=== PATIENT | female | born 1995 | race Caucasian/White ===

== ENCOUNTER 2018-06-11 22:58 | Observation (INO) ==
[2018-06-11 23:47] LABS: Bilirubin,Urine Negative (Negative); Blood,Urine Trace (Negative); Clarity,Urine Cloudy (Clear); Color,Urine Dark Yellow (Yellow); Glucose,Urine (UA) Normal (Normal); Ketones,Urine Negative (Negative); Leukocyte Esterase,Urine Large (Negative); Nitrite,Urine Positive (Negative); Protein,Urine Trace mg/dL (Neg-Trace); Urobilinogen,Urine Normal (Normal)
[2018-06-11 23:50] LABS: Bacteria,Urine Few per hpf (None-Few); Hyaline Casts,Urine None Seen per lpf (None-Few); Squamous Epithelial Cell,Urine Many per lpf (None-Few); WBC,Urine TNTC per hpf (0-3)
[2018-06-11 23:59] LABS: Amphetamine Screen,Urine Negative ng/mL (Cutoff=1000); Barbiturate Screen,Urine Negative ng/mL (Cutoff=200); Benzodiazepines Screen,Urine Negative ng/mL (Cutoff=200); Cannabinoid Screen,Urine Positive ng/mL (Cutoff = 50); Cocaine Screen,Urine Negative ng/mL (Cutoff= 300); Opiate Screen,Urine Negative ng/mL (Cutoff=300); Phencyclidine Screen,Urine Negative ng/mL (Cutoff=25)
[2018-06-12 00:17] LABS: Basophils % 0.3 %; Eosinophils # 0.3 K/mcL (0.0-0.6); Hematocrit 41.8 % (35.3-44.9); Hemoglobin 14.6 g/dL (11.5-15.4); Immature Granulocytes % 0.5 % (0-4); Lymphocytes # 2.9 K/mcL (0.6-4.6); Mean Corpuscular HGB Conc 34.9 g/dL (31.6-35.5); Mean Corpuscular Hemoglobin 31.6 pg (28.0-33.3); Mean Corpuscular Volume 90.5 fL (83.0-100.0); Mean Platelet Volume 11.1 fL (9.4-12.4); Monocytes # 0.7 K/mcL (0.0-1.3); Monocytes % 5.3 %; Neutrophils # 8.6 K/mcL (1.6-8.9); Platelet Count 255 K/mcL (140-400); Red Blood Count 4.62 M/mcL (3.82-4.97); Red Cell Distribution Width 12.2 % (11.5-14.5); Segmented Neutrophils % 68.9 %
[2018-06-12 00:22] LABS: Acetaminophen < 10 mcg/mL (10-20); BUN/Creatinine Ratio 14 (6-26); Blood Urea Nitrogen 10 mg/dL (6-20); Calcium 10.1 mg/dL (8.6-10.3); Carbon Dioxide 23 mEq/L (23-29); Chloride 106 mEq/L (98-107); Ethanol < 10 mg/dL (Less than 10); Glucose 109 mg/dL (70-105); Osmolality,Calculated 288 (280-300); Potassium 3.8 mEq/L (3.5-5.1); Salicylate < 2.5 mg/dL (15.0-30.0); Sodium 139 mEq/L (136-145); eGFR For Non-African Americans > 60 (> 60)
[2018-06-12] MEDS ORDERED: Acetaminophen 325 MG TABLET PO ONE (01:01)
[2018-06-12] MEDS ORDERED: Nitrofurantoin (BID) 100 MG CAPSULE PO ONE (01:03)
--- NOTE | 2018-06-12 01:26 | Emergency Department Note ---
Disposition Clinical Impression: Suicidal ideation UTI (urinary tract infection) Qualifiers: Urinary tract infection type: site unspecified Hematuria presence: with hematuria Qualified Code(s): N39.0 - Urinary tract infection, site not specified Disposition: Admitted As Inpatient Condition: Good Referrals: NONE,PCP [Primary Care Provider] - Forms: ED Satisfaction Letter Time of Disposition: 05:46 Psych HPI - General Chief Complaint: ED Psychiatric Symptoms Stated Complaint: SI/Depression Time Seen by Provider: 06/11/18 23:44 Source: patient Mode of arrival: private vehicle Limitations: no limitations Nursing Notes Reviewed: Yes Vital Signs Reviewed: Yes - History of Present Illness HPI Narrative: 22-year-old female prior history of depression and suicide attempt presents due to suicidal ideation. Reports stressors in her life. She is on Effexor and is compliant with her medications however she states she continues to have thoughts. No plan. She previously tried to cut herself in the past. Denies any alcohol or drug ingestion. No auditory or visual hallucinations. No homicidal ideation. No other complaints. Pt complaint: suicidal ideation Onset (ago): day(s) History of similar episodes: Yes Improves with: none Worsens with: none Alleged intoxication: No Associated Psychiatric Symptoms: depression, suicidal ideation Associated symptoms: Reports: other (Dysuria) Traumatic symptoms: denies traumatic injury Treatments prior to arrival: none Self harm or harm to others: admits thoughts of self harm, denies having a plan - Related Data Allergies Allergy/AdvReac Type Severity Reaction Status Date / Time Sulfa (Sulfonamide Allergy Rash Verified 06/11/18 23:20 Antibiotics) codeine AdvReac Vomiting Verified 06/11/18 23:20 All systems ED: reviewed and negative except as stated. Gastrointestinal: Denies: abdominal pain Genitourinary: Reports: dysuria Neurological: Reports: headache Psychiatric: Reports: depression, suicidal thoughts. Denies: homicidal thoughts , auditory hallucinations, visual hallucinations Past Medical History - Past Medical History Attestation: Yes The following information was validated with the patient. Source: patient Medical history: Reports: no medical history Psychiatric history: Reports: depression - Social History Smoking Status: Current every day smoker Alcohol use: Reports: none Drug use: Reports: none Physical Exam - General Limitations: no limitations General appearance: alert, in no apparent distress - Head Head exam: atraumatic, normocephalic - Eye Eye exam: Present: normal appearance - ENT ENT exam: normal exam - Neck Neck exam: Present: normal inspection, full ROM - Chest Chest inspection: Present: normal inspection, symmetric chest wall rise - Respiratory Respiratory exam: Present: normal lung sounds bilaterally - Cardiovascular Cardiovascular exam: Present: regular rate, normal rhythm, normal heart sounds - Abdominal Exam Abdominal exam: Present: soft, Non-Tender. Absent: tenderness, distention, rigidity - Extremities Exam Extremities exam: Present: normal inspection, full ROM - Expanded Upper Extremity Exam Shoulder exam: Present: normal inspection, full ROM Arm exam: Present: normal inspection, full ROM Elbow exam: Present: normal inspection, full ROM Forearm/Wrist exam: Present: normal inspection, full ROM Hand exam: Present: normal inspection, full ROM - Expanded Lower Extremity Exam Hip/Pelvis exam: Present: normal inspection, full ROM Upper leg exam: Present: normal inspection, full ROM Knee exam: Present: normal inspection, full ROM Lower leg exam: Present: normal inspection, full ROM Ankle exam: Present: normal inspection, full ROM Foot/toe exam: Present: normal inspection, full ROM - Skin Skin exam: Present: warm, dry Course Course Narrative: Patient seen and examined. He slipped for psychiatric evaluation. Medically cleared. Noted to have a UTI on her urinalysis. Macrobid ordered. Tylenol for headache. Vital Signs Temperature 99 F 06/11/18 23:16 Pulse Rate 99 06/11/18 23:16 Respiratory Rate 20 06/11/18 23:16 Blood Pressure 137/88 06/11/18 23:16 O2 Sat by Pulse Oximetry 100 06/11/18 23:16 Temperature 98 F 06/12/18 04:38 Pulse Rate 89 06/12/18 04:38 Respiratory Rate 16 06/12/18 04:38 Blood Pressure 121/77 06/12/18 04:38 O2 Sat by Pulse Oximetry 98 06/12/18 04:38 Oxygen Delivery Oxygen Delivery Room Air Psych - MDM Narrative Medical decision making narrative: 20-year-old female presents with suicidal ideation. Medically cleared for psychiatric evaluation. Workup demonstrated a UTI. Patient is admitted to the psychiatric service. - Lab Data Lab results reviewed: Yes I reviewed the patient's lab results. Result diagrams: 06/11/18 23:46 06/11/18 23:46 Lab Results 08/02/18 08/02/18 08/02/18 Range/Units 23:10 23:10 23:10 WBC (4.3-11.1) K/mcL RBC (3.82-4.97) M/mcL Hgb (11.5-15.4) g/dL Hct (35.3-44.9) % MCV (83.0-100.0) fL MCH (28.0-33.3) pg MCHC (31.6-35.5) g/dL RDW (11.5-14.5) % Plt Count (140-400) K/mcL MPV (9.4-12.4) fL Immature Gran % (0-4) % Seg Neutrophils % % Lymphocytes % % Monocytes % % Eosinophils % % Basophils % % Neutrophils # (1.6-8.9) K/mcL Lymphocytes # (0.6-4.6) K/mcL Monocytes # (0.0-1.3) K/mcL Eosinophils # (0.0-0.6) K/mcL Basophils # (0.0-0.2) K/mcL Sodium (136-145) mEq/L Potassium (3.5-5.1) mEq/L Chloride (98-107) mEq/L Carbon Dioxide (23-29) mEq/L BUN (6-20) mg/dL Creatinine (0.60-1.20) mg/dL Est GFR ( Amer) (> 60) Est GFR (Non-Af Amer) (> 60) BUN/Creatinine Ratio (6-26) Glucose (70-105) mg/dL Calculated Osmolality (280-300) Calcium (8.6-10.3) mg/dL Urine Color Dark Yellow (Yellow) Urine Clarity Cloudy A (Clear) Urine pH 6.0 (5.0-8.0) pH Units Ur Specific [place] 1.020 (1.010-1.025) Urine Protein Trace (Neg-Trace) mg/dL Urine Glucose (UA) Normal (Normal) mg/dL Urine Ketones Negative (Negative) mg/dL Urine Blood Trace H (Negative) Urine Nitrite Positive A (Negative) Urine Bilirubin Negative (Negative) Urine Urobilinogen Normal (Normal) mg/dL Ur Leukocyte Esterase Large H (Negative) Urine Microscopic RBC 5-15 H (0-3) per hpf Urine Microscopic WBC TNTC H (0-3) per hpf Ur Squamous Epith Cells Many H (None-Few) per lpf Urine Bacteria Few (None-Few) per hpf Hyaline Casts None Seen (None-Few) per lpf Urine Test Negative (Negative) Salicylates (15.0-30.0) mg/dL Urine Opiates Screen Negative (Kqowxo=998) ng/mL Acetaminophen (10-20) mcg/mL Ur Barbiturates Screen Negative (Kdzkdq=841) ng/mL Ur Phencyclidine Scrn Negative (Cutoff=25) ng/mL Ur Amphetamines Screen Negative (Coxrqa=2116) ng/mL U Benzodiazepines Scrn Negative (Xfbcnd=300) ng/mL Urine Cocaine Screen Negative (Cutoff= 300) ng/mL U Marijuana (THC) Screen Positive H (Cutoff = 50) ng/mL Ur Drug Screen Interp See Below Ethyl Alcohol (Less than 10) mg/dL 06/11/18 06/11/18 Range/Units 23:46 23:46 WBC 12.4 H (4.3-11.1) K/mcL RBC 4.62 (3.82-4.97) M/mcL Hgb 14.6 (11.5-15.4) g/dL Hct 41.8 (35.3-44.9) % MCV 90.5 (83.0-100.0) fL MCH 31.6 (28.0-33.3) pg MCHC 34.9 (31.6-35.5) g/dL RDW 12.2 (11.5-14.5) % Plt Count 255 (140-400) K/mcL MPV 11.1 (9.4-12.4) fL Immature Gran % 0.5 (0-4) % Seg Neutrophils % 68.9 % Lymphocytes % 23.0 % Monocytes % 5.3 % Eosinophils % 2.0 % Basophils % 0.3 % Neutrophils # 8.6 (1.6-8.9) K/mcL Lymphocytes # 2.9 (0.6-4.6) K/mcL Monocytes # 0.7 (0.0-1.3) K/mcL Eosinophils # 0.3 (0.0-0.6) K/mcL Basophils # 0.0 (0.0-0.2) K/mcL Sodium 139 (136-145) mEq/L Potassium 3.8 (3.5-5.1) mEq/L Chloride 106 (98-107) mEq/L Carbon Dioxide 23 (23-29) mEq/L BUN 10 (6-20) mg/dL Creatinine 0.73 (0.60-1.20) mg/dL Est GFR ( Amer) > 60 (> 60) Est GFR (Non-Af Amer) > 60 (> 60) BUN/Creatinine Ratio 14 (6-26) Glucose 109 H (70-105) mg/dL Calculated Osmolality 288 (280-300) Calcium 10.1 (8.6-10.3) mg/dL Urine Color (Yellow) Urine Clarity (Clear) Urine pH (5.0-8.0) pH Units Ur Specific [place] (1.010-1.025) Urine Protein (Neg-Trace) mg/dL Urine Glucose (UA) (Normal) mg/dL Urine Ketones (Negative) mg/dL Urine Blood (Negative) Urine Nitrite (Negative) Urine Bilirubin (Negative) Urine Urobilinogen (Normal) mg/dL Ur Leukocyte Esterase (Negative) Urine Microscopic RBC (0-3) per hpf Urine Microscopic WBC (0-3) per hpf Ur Squamous Epith Cells (None-Few) per lpf Urine Bacteria (None-Few) per hpf Hyaline Casts (None-Few) per lpf Urine Test (Negative) Salicylates < 2.5 L (15.0-30.0) mg/dL Urine Opiates Screen (Btnqkx=765) ng/mL Acetaminophen < 10 L (10-20) mcg/mL Ur Barbiturates Screen (Evsrgz=602) ng/mL Ur Phencyclidine Scrn (Cutoff=25) ng/mL Ur Amphetamines Screen (Chbcma=9191) ng/mL U Benzodiazepines Scrn (Oxrcvo=872) ng/mL Urine Cocaine Screen (Cutoff= 300) ng/mL U Marijuana (THC) Screen (Cutoff = 50) ng/mL Ur Drug Screen Interp Ethyl Alcohol < 10 (Less than 10) mg/dL Psychiatric Medical Clearance - Medical Clearance Checklist Medical History: No Social History Section defined Current Vitals: Last Vital Signs Temp 98 F 06/12/18 04:38 Pulse 89 06/12/18 04:38 Resp 16 06/12/18 04:38 BP 121/77 06/12/18 04:38 Pulse Ox 98 06/12/18 04:38 Psychiatric Lab Panel: Drug Levels and Toxicity 06/11/18 06/11/18 23:10 23:46 Urine Opiates Screen Negative Acetaminophen < 10 L Ur Barbiturates Screen Negative Ur Phencyclidine Scrn Negative Ur Amphetamines Screen Negative U Benzodiazepines Scrn Negative Urine Cocaine Screen Negative U Marijuana (THC) Screen Positive H Ethyl Alcohol < 10 Abnormal Labs: Abnormal lab results WBC 12.4 K/mcL (4.3-11.1) H 06/11/18 23:46 Glucose 109 mg/dL (70-105) H 06/11/18 23:46 Urine Clarity Cloudy (Clear) A 06/11/18 23:10 Urine Blood Trace (Negative) H 06/11/18 23:10 Urine Nitrite Positive (Negative) A 06/11/18 23:10 Ur Leukocyte Esterase Large (Negative) H 06/11/18 23:10 Urine Microscopic RBC 5-15 per hpf (0-3) H 06/11/18 23:10 Urine Microscopic WBC TNTC per hpf (0-3) H 06/11/18 23:10 Ur Squamous Epith Cells Many per lpf (None-Few) H 06/11/18 23:10 Salicylates < 2.5 mg/dL (15.0-30.0) L 06/11/18 23:46 Acetaminophen < 10 mcg/mL (10-20) L 06/11/18 23:46 U Marijuana (THC) Screen Positive ng/mL (Cutoff = 50) H 06/11/18 23:10 Statement of Medical Clearance: I have evaluated the patient, reviewed diagnostic information, and certify that the patient's medical condition is sufficiently stable that transfer to the psychiatric unit does not pose a significant risk of deterioration.
--- NOTE | 2018-06-12 02:26 | Emergency Department Note ---
Disposition Clinical Impression: Suicidal ideation UTI (urinary tract infection) Qualifiers: Urinary tract infection type: site unspecified Hematuria presence: with hematuria Qualified Code(s): N39.0 - Urinary tract infection, site not specified Disposition: Still a Patient Condition: Good Referrals: NONE,PCP [Primary Care Provider] - Forms: ED Satisfaction Letter General Adult HPI - General Chief complaint: ED Psychiatric Symptoms Stated complaint: SI/Depression Time Seen by Provider: 06/11/18 23:44 Source: patient Mode of arrival: private vehicle Limitations: no limitations Nursing Notes Reviewed: Yes Vital Signs Reviewed: Yes - History of Present Illness Pain Scale: 0 - Related Data Allergies Allergy/AdvReac Type Severity Reaction Status Date / Time Sulfa (Sulfonamide Allergy Rash Verified 06/11/18 23:20 Antibiotics) codeine AdvReac Vomiting Verified 06/11/18 23:20 Gastrointestinal: Denies: abdominal pain Genitourinary: Reports: dysuria Neurological: Reports: headache Psychiatric: Reports: depression, suicidal thoughts. Denies: homicidal thoughts , auditory hallucinations, visual hallucinations Past Medical History - Past Medical History Medical history: Reports: no medical history Psychiatric history: Reports: depression - Social History Smoking Status: Current every day smoker Alcohol use: Reports: none Drug use: Reports: none Physical Exam - General Limitations: no limitations General appearance: alert, in no apparent distress Course Vital Signs Temperature 99 F 06/11/18 23:16 Pulse Rate 99 06/11/18 23:16 Respiratory Rate 20 06/11/18 23:16 Blood Pressure 137/88 06/11/18 23:16 O2 Sat by Pulse Oximetry 100 06/11/18 23:16 Temperature 98 F 06/12/18 04:38 Pulse Rate 89 06/12/18 04:38 Respiratory Rate 16 06/12/18 04:38 Blood Pressure 121/77 06/12/18 04:38 O2 Sat by Pulse Oximetry 98 06/12/18 04:38 Oxygen Delivery Oxygen Delivery Room Air Medical Decision Making - Lab Data Lab results reviewed: Yes I reviewed the patient's lab results. Result diagrams: 06/11/18 23:46 06/11/18 23:46 Lab Results 06/11/18 06/11/18 06/11/18 Range/Units 23:10 23:10 23:10 WBC (4.3-11.1) K/mcL RBC (3.82-4.97) M/mcL Hgb (11.5-15.4) g/dL Hct (35.3-44.9) % MCV (83.0-100.0) fL MCH (28.0-33.3) pg MCHC (31.6-35.5) g/dL RDW (11.5-14.5) % Plt Count (140-400) K/mcL MPV (9.4-12.4) fL Immature Gran % (0-4) % Seg Neutrophils % % Lymphocytes % % Monocytes % % Eosinophils % % Basophils % % Neutrophils # (1.6-8.9) K/mcL Lymphocytes # (0.6-4.6) K/mcL Monocytes # (0.0-1.3) K/mcL Eosinophils # (0.0-0.6) K/mcL Basophils # (0.0-0.2) K/mcL Sodium (136-145) mEq/L Potassium (3.5-5.1) mEq/L Chloride (98-107) mEq/L Carbon Dioxide (23-29) mEq/L BUN (6-20) mg/dL Creatinine (0.60-1.20) mg/dL Est GFR ( Amer) (> 60) Est GFR (Non-Af Amer) (> 60) BUN/Creatinine Ratio (6-26) Glucose (70-105) mg/dL Calculated Osmolality (280-300) Calcium (8.6-10.3) mg/dL Urine Color Dark Yellow (Yellow) Urine Clarity Cloudy A (Clear) Urine pH 6.0 (5.0-8.0) pH Units Ur Specific [place] 1.020 (1.010-1.025) Urine Protein Trace (Neg-Trace) mg/dL Urine Glucose (UA) Normal (Normal) mg/dL Urine Ketones Negative (Negative) mg/dL Urine Blood Trace H (Negative) Urine Nitrite Positive A (Negative) Urine Bilirubin Negative (Negative) Urine Urobilinogen Normal (Normal) mg/dL Ur Leukocyte Esterase Large H (Negative) Urine Microscopic RBC 5-15 H (0-3) per hpf Urine Microscopic WBC TNTC H (0-3) per hpf Ur Squamous Epith Cells Many H (None-Few) per lpf Urine Bacteria Few (None-Few) per hpf Hyaline Casts None Seen (None-Few) per lpf Urine Test Negative (Negative) Salicylates (15.0-30.0) mg/dL Urine Opiates Screen Negative (Mqxfao=088) ng/mL Acetaminophen (10-20) mcg/mL Ur Barbiturates Screen Negative (Plxidv=713) ng/mL Ur Phencyclidine Scrn Negative (Cutoff=25) ng/mL Ur Amphetamines Screen Negative (Vhqsnf=3307) ng/mL U Benzodiazepines Scrn Negative (Uewmvk=858) ng/mL Urine Cocaine Screen Negative (Cutoff= 300) ng/mL U Marijuana (THC) Screen Positive H (Cutoff = 50) ng/mL Ur Drug Screen Interp See Below Ethyl Alcohol (Less than 10) mg/dL 06/11/18 06/11/18 Range/Units 23:46 23:46 WBC 12.4 H (4.3-11.1) K/mcL RBC 4.62 (3.82-4.97) M/mcL Hgb 14.6 (11.5-15.4) g/dL Hct 41.8 (35.3-44.9) % MCV 90.5 (83.0-100.0) fL MCH 31.6 (28.0-33.3) pg MCHC 34.9 (31.6-35.5) g/dL RDW 12.2 (11.5-14.5) % Plt Count 255 (140-400) K/mcL MPV 11.1 (9.4-12.4) fL Immature Gran % 0.5 (0-4) % Seg Neutrophils % 68.9 % Lymphocytes % 23.0 % Monocytes % 5.3 % Eosinophils % 2.0 % Basophils % 0.3 % Neutrophils # 8.6 (1.6-8.9) K/mcL Lymphocytes # 2.9 (0.6-4.6) K/mcL Monocytes # 0.7 (0.0-1.3) K/mcL Eosinophils # 0.3 (0.0-0.6) K/mcL Basophils # 0.0 (0.0-0.2) K/mcL Sodium 139 (136-145) mEq/L Potassium 3.8 (3.5-5.1) mEq/L Chloride 106 (98-107) mEq/L Carbon Dioxide 23 (23-29) mEq/L BUN 10 (6-20) mg/dL Creatinine 0.73 (0.60-1.20) mg/dL Est GFR ( Amer) > 60 (> 60) Est GFR (Non-Af Amer) > 60 (> 60) BUN/Creatinine Ratio 14 (6-26) Glucose 109 H (70-105) mg/dL Calculated Osmolality 288 (280-300) Calcium 10.1 (8.6-10.3) mg/dL Urine Color (Yellow) Urine Clarity (Clear) Urine pH (5.0-8.0) pH Units Ur Specific [place] (1.010-1.025) Urine Protein (Neg-Trace) mg/dL Urine Glucose (UA) (Normal) mg/dL Urine Ketones (Negative) mg/dL Urine Blood (Negative) Urine Nitrite (Negative) Urine Bilirubin (Negative) Urine Urobilinogen (Normal) mg/dL Ur Leukocyte Esterase (Negative) Urine Microscopic RBC (0-3) per hpf Urine Microscopic WBC (0-3) per hpf Ur Squamous Epith Cells (None-Few) per lpf Urine Bacteria (None-Few) per hpf Hyaline Casts (None-Few) per lpf Urine Test (Negative) Salicylates < 2.5 L (15.0-30.0) mg/dL Urine Opiates Screen (Dtsfbz=784) ng/mL Acetaminophen < 10 L (10-20) mcg/mL Ur Barbiturates Screen (Oorfmj=687) ng/mL Ur Phencyclidine Scrn (Cutoff=25) ng/mL Ur Amphetamines Screen (Umirnb=7793) ng/mL U Benzodiazepines Scrn (Avzycy=715) ng/mL Urine Cocaine Screen (Cutoff= 300) ng/mL U Marijuana (THC) Screen (Cutoff = 50) ng/mL Ur Drug Screen Interp Ethyl Alcohol < 10 (Less than 10) mg/dL Attestation Statement - Attestation Attestation: I, Scott Atkinson MD, personally evaluated this patient and discussed their management with the resident physician. I reviewed the resident's note and agree with the documented findings, medical decision making, and plan of care. 22-year-old female persisted emergency department with a complaint of suicidal ideations. No specific plans. She does have a history of suicidal ideations and attempts in the distant past. She is on medication but states it does not seem to be helping. On examination patient is a well-developed well-nourished well-appearing female in no acute distress. She is alert and oriented 3. There is no cyanosis or diaphoresis. Breath sounds are clear and equal bilaterally. Heart regular rate and rhythm. Abdomen soft and nontender with normal bowel sounds. No gross focal neurological deficits. Labs reviewed. [address] psychiatry service was consulted and evaluated patient in the emergency department. After evaluation the patient is being admitted to the [address] psychiatric unit.
[2018-06-12] MEDS ORDERED: Mag Hydrox/Al Hydrox/Simeth 30 ML UDC PO PRN (06:03)
[2018-06-12] MEDS ORDERED: hydrOXYzine pamoate 25 MG CAPSULE PO PRN (06:03)
[2018-06-12] MEDS ORDERED: MOM Conc 10 ML UD.LIQ PO PRN (06:03)
[2018-06-12] MEDS ORDERED: *HR* LORazepam 2 MG/ML VIAL IM PRN (06:03)
[2018-06-12] MEDS ORDERED: Acetaminophen 325 MG TABLET PO PRN (06:03)
[2018-06-12] MEDS ORDERED: Haloperidol Lactate 5 MG/ML VIAL IM PRN (06:03)
[2018-06-12] MEDS ORDERED: *HR* LORazepam 1 MG TABLET PO PRN (06:03)
[2018-06-12] MEDS ORDERED: traZODone 50 MG TABLET PO PRN (06:03)
[2018-06-12] MEDS ORDERED: Nicotine 21 MG PATCH.TD24 TD SCH (09:00)
[2018-06-12] MEDS ORDERED: Venlafaxine XR (24 HR) 150 MG CAP.ER.24H PO SCH (09:00)
[2018-06-12 10:40] VITALS: BP 149/87
--- NOTE | 2018-06-12 11:28 | Discharge Summary ---
Date of Encounter: 06/12/18 Time of Encounter: 11:30 History of Present Illness Chief complaint: I am not suicidal, I said a few things Admitted From: Emergency Dept History of Present Illness: Ms. Lou is a 22 year old female The patient was in her usual state of health and mood but in the past month and gotten significantly worse. The patient has episodes of major depression. She failed to respond to Prozac, Paxil, Lexapro when first treated for depression in eighth grade. This was after the bereavement cousin. The patient's chief complaint now is that she no longer feels suicidal and that she said a few things that many people upset History of present illness the patient was interviewed in the presence of her mother. The patient had requested to leave the hospital she was a voluntary patient. The mother reports that the patient had been less responsive not taxing back not responding with diminished interest in self-care over the past month the patient's been treated with the medicine Effexor and the medicine Strattera for some time she had been seen at [facility] and had an appointment that was only recently found. Is coming . Nonetheless the patient's mother called the suicide prevention. Because the patient's statements about self-harm and that she did not want to go on anymore they recommended further evaluation emergency room. While in the emergency room was felt the patient represented some risk of suicide although she did not have means necessary at the time. She also had severe depression was asking for adjustment in her medicine The patient was observed overnight and had no suicidal behaviors she was somewhat despondent and asked her mother to come to pick her up because she wanted to leave the unit. After further discussion the patient was found to meet major depressive disorder recurrent severe without psychotic features. The patient also had a urinary tract infection treated on an outpatient basis and still showed evidence of UTI. The patient had 1 dose of nitrofurantoin. She still had some symptoms of dysuria by her report. The patient and her mother agreed to an outpatient treatment plan. The patient plans to stay with her mother her 4-year-old daughter will go with the illogical father. The patient is in a safe environment with no access to guns and knives are incendiary devices. The patient's mother will help the patient get to her appointment will continue to monitor her medicines and provide support. The patient lives with her father in [place] but she will not return to that residence at this time. The patient was informed that she had a negative test she was advised not to become while taking psychotropic medicines or to have a further discussion with her prescribing physician before planning a .. The patient verbalized understanding. The patient was advised to put off any big decisions such as breaking up with a boyfriend permanent changes in residence or significant financial transactions. She verbalized understanding. We did discuss treatment of major depressive disorder. This can include increasing current medicines Effexor and Strattera. It can include augmentation with medicines like Rexulti. And we also discussed pharmacological genetic testing in the evaluation of treatment options. The patient met with renal social worker and the patient's mother met with renal social worker prior to discharge. The patient was discharged on no medicines that she had an adequate supply at home she was advised to continue her medicines as prescribed until she saw her new provider. Past Med Surg Social Fam HX - Past Medical History Medical history: no medical history - Past Psychiatric History Psychiatric history: Reports: depression Family psychiatric history: Yes Family History of Suicide: Unknown - Past Surgical History Surgical History: no surgical history - Social History Smoking Status: Current every day smoker Smokeless Tobacco Status: No Alcohol use: none Drug use: none Occupational status: previously employed Current living situation: Home - Independent, With Family Activity Level: Independent ambulation Recent Out of Country Travel Within the Last 8 Weeks: No Exposure or Possible Exposure to Illness During Travel: No Medications - Discharge Medications 3 Allergy/AdvReac Type Severity Reaction Status Date / Time Sulfa (Sulfonamide Allergy Rash Verified 06/11/18 23:20 Antibiotics) codeine AdvReac Vomiting Verified 06/11/18 23:20 Review of Systems Psychiatric: Reports: depression, hopelessness, irritability Exam - HEENT Head exam IM: Present: atraumatic Eye exam IM: Present: EOMI, normal appearance, PERRL ENT exam IM: Present: normal exam - Neurological Neurological exam: Present: CN II-XII intact - GI/Abdominal GI/Abdominal exam IM: Absent: tenderness - Extremities Extremities exam IM: Present: full ROM - Skin Skin exam IM: Present: dry, warm - Constitutional Vitals: Temp Pulse Resp BP Pulse Ox 97.3 F L 96 18 149/87 98 06/12/18 09:00 06/12/18 09:00 06/12/18 09:00 06/12/18 09:00 06/12/18 04:38 General appearance: age & developmentally appropriate, well-groomed, well- nourished - Musculoskeletal Gait: normal Station: relaxed Strength & Tone: normal for patient - Psychiatric Patient Orientation: Yes Person, Yes Time, Yes Place Level of alertness: Alert Behavior: calm, cooperative Psychomotor activity: Normal Eye Contact: Maintains Eye Contact Affect description: congruent with mood, full range Speech Volume: Normal Speech pattern: normal rate, normal rhythm, normal tone, fluent, spontaneous Language & Vocabulary: consistent with education Thought Process: Linear, Goal Oriented Thought Content: No Suicidal ideation, No Homicidal ideation, No Overt delusions Perceptual Disturbances: No Auditory hallucinations, No Visual hallucinations Attention Span Ability: Capable of Focused Attention Memory Description: Grossly Intact Patient Reliability: Reliable Historian Fund of knowledge: Yes abstraction ability, Yes average, Yes aware of current events Intelligence Estimate: Average Judgment: Fair Insight: Partial Results - Labs Labs: Laboratory Last Values WBC 12.4 K/mcL (4.3-11.1) H 06/11/18 23:46 RBC 4.62 M/mcL (3.82-4.97) 06/11/18 23:46 Hgb 14.6 g/dL (11.5-15.4) 06/11/18 23:46 Hct 41.8 % (35.3-44.9) 06/11/18 23:46 MCV 90.5 fL (83.0-100.0) 06/11/18 23:46 MCH 31.6 pg (28.0-33.3) 06/11/18 23:46 MCHC 34.9 g/dL (31.6-35.5) 06/11/18 23:46 RDW 12.2 % (11.5-14.5) 06/11/18 23:46 Plt Count 255 K/mcL (140-400) 06/11/18 23:46 MPV 11.1 fL (9.4-12.4) 06/11/18 23:46 Immature Gran % 0.5 % (0-4) 06/11/18 23:46 Seg Neutrophils % 68.9 % 06/11/18 23:46 Lymphocytes % 23.0 % 06/11/18 23:46 Monocytes % 5.3 % 06/11/18 23:46 Eosinophils % 2.0 % 06/11/18 23:46 Basophils % 0.3 % 06/11/18 23:46 Neutrophils # 8.6 K/mcL (1.6-8.9) 06/11/18 23:46 Lymphocytes # 2.9 K/mcL (0.6-4.6) 06/11/18 23:46 Monocytes # 0.7 K/mcL (0.0-1.3) 06/11/18 23:46 Eosinophils # 0.3 K/mcL (0.0-0.6) 06/11/18 23:46 Basophils # 0.0 K/mcL (0.0-0.2) 06/11/18 23:46 Sodium 139 mEq/L (136-145) 06/11/18 23:46 Potassium 3.8 mEq/L (3.5-5.1) 06/11/18 23:46 Chloride 106 mEq/L (98-107) 06/11/18 23:46 Carbon Dioxide 23 mEq/L (23-29) 06/11/18 23:46 BUN 10 mg/dL (6-20) 06/11/18 23:46 Creatinine 0.73 mg/dL (0.60-1.20) 06/11/18 23:46 Est GFR ( Amer) > 60 (> 60) 06/11/18 23:46 Est GFR (Non-Af Amer) > 60 (> 60) 06/11/18 23:46 BUN/Creatinine Ratio 14 (6-26) 06/11/18 23:46 Glucose 109 mg/dL (70-105) H 06/11/18 23:46 Calculated Osmolality 288 (280-300) 06/11/18 23:46 Calcium 10.1 mg/dL (8.6-10.3) 06/11/18 23:46 Urine Color Dark Yellow (Yellow) 06/11/18 23:10 Urine Clarity Cloudy (Clear) A 06/11/18 23:10 Urine pH 6.0 pH Units (5.0-8.0) 06/11/18 23:10 Ur Specific Hanna 1.020 (1.010-1.025) 06/11/18 23:10 Urine Protein Trace mg/dL (Neg-Trace) 06/11/18 23:10 Urine Glucose (UA) Normal mg/dL (Normal) 06/11/18 23:10 Urine Ketones Negative mg/dL (Negative) 06/11/18 23:10 Urine Blood Trace (Negative) H 06/11/18 23:10 Urine Nitrite Positive (Negative) A 06/11/18 23:10 Urine Bilirubin Negative (Negative) 06/11/18 23:10 Urine Urobilinogen Normal mg/dL (Normal) 06/11/18 23:10 Ur Leukocyte Esterase Large (Negative) H 06/11/18 23:10 Urine Microscopic RBC 5-15 per hpf (0-3) H 06/11/18 23:10 Urine Microscopic WBC TNTC per hpf (0-3) H 06/11/18 23:10 Ur Squamous Epith Cells Many per lpf (None-Few) H 06/11/18 23:10 Urine Bacteria Few per hpf (None-Few) 06/11/18 23:10 Hyaline Casts None Seen per lpf (None-Few) 06/11/18 23:10 Urine Test Negative (Negative) 06/11/18 23:10 Salicylates < 2.5 mg/dL (15.0-30.0) L 06/11/18 23:46 Urine Opiates Screen Negative ng/mL (Qlglee=389) 06/11/18 23:10 Acetaminophen < 10 mcg/mL (10-20) L 06/11/18 23:46 Ur Barbiturates Screen Negative ng/mL (Fgkvws=762) 06/11/18 23:10 Ur Phencyclidine Scrn Negative ng/mL (Cutoff=25) 06/11/18 23:10 Ur Amphetamines Screen Negative ng/mL (Swmlcx=9651) 06/11/18 23:10 U Benzodiazepines Scrn Negative ng/mL (Edvfya=536) 06/11/18 23:10 Urine Cocaine Screen Negative ng/mL (Cutoff= 300) 06/11/18 23:10 U Marijuana (THC) Screen Positive ng/mL (Cutoff = 50) H 06/11/18 23:10 Ur Drug Screen Interp See Below 06/11/18 23:10 Ethyl Alcohol < 10 mg/dL (Less than 10) 06/11/18 23:46 Diagnosis - Discharge Diagnosis (1) Major depressive disorder, recurrent severe without psychotic features Status: Acute (2) Suicidal ideation Status: Resolved (3) UTI (urinary tract infection) Status: Acute Qualifiers: Urinary tract infection type: acute cystitis Hematuria presence: with hematuria Qualified Code(s): N30.01 - Acute cystitis with hematuria Assessment and Plan - Patient/Caregiver Discharge Instructions Activity: resume usual activities as tolerated Diet: regular diet - Follow up Plan Follow up with: NONE,PCP [Primary Care Provider] - Functional capacity at discharge: independent ambulation Overall status at discharge: patient is progressing back to baseline Disposition: Home, Self-Care Provider Date of admission: 06/12/18 05:47 Primary care physician: PCP NONE Hospital Course Hospital course: Ms. Lou is a 22 year old female - Time Spent with Patient Total time spent providing and/or coordinating discharge services: Quality - Multiple Antipsychotics Patient discharged on 2 or more antipsychotic medications: No
== END 2018-06-12 12:02 | disposition home or self-care (01) ==
LOC: EMEROO 22:58 → 1ANU 06-12 05:47 → INTOOBSV 06-12 05:47 → 1ANU 06-12 06:35
PROVIDERS: ADMIT Psychiatry & Neurology Forensic Psychiatry; ATTEND Psychiatry & Neurology Forensic Psychiatry